=== PATIENT | male | born 1950 | race Caucasian/White ===

== ENCOUNTER 2017-10-03 13:27 | Emergency (ER) | payer MEDICARE ==
[~2017-10-03] VITALS: Ht 175.3 cm; Wt 68.0 kg
[~2017-10-03 13:27] MED LIST: METOPROLOL TART25 MG PO
[2017-10-03] MEDS ORDERED: CLEOCIN HCL300 MG PO (15:22)
== END 2017-10-03 15:31 | disposition home or self-care (01) ==
LOC: ED 13:27
DX: L03.115 Cellulitis of right lower limb (principal); Z91.048 Other nonmedicinal substance allergy status; Z98.890 Other specified postprocedural states; M79.662 Pain in left lower leg
CPT/HCPCS: 80053; 83605; 85025; 87040; 90471; 90715; 93971; 96365; 99284

== ENCOUNTER 2019-10-23 13:26 | Day surgery (SDC) | payer MEDICARE ==
[~2019-10-23] VITALS: Ht 175.3 cm; Wt 72.6 kg
[~2019-10-23 13:26] MED LIST changes: +CALCIUM500 MG PO; +CLEOCIN HCL300 MG PO; +GARLIC1 EAC1 PO; +MULTIVITAMINS1 EAC7 PO; +SAW PALMETTO450 MG PO; +VITAMIN B122500 MCG PO
--- NOTE | 2019-10-23 16:10 | NUR ---
10/23/19 1610 Lurdes Barrett 1604-PATIENT ARRIVED TO PACU ON 2L NC REACTIVE TO VERBAL STIMULI OPENING EYES DENIES PAIN OR NAUSEA. LAYING LEFT LATERAL. ENCOURAGED TO PASS GAS. IVF INFUSING.
--- NOTE | 2019-10-23 20:17 | OR ---
[facility] [address], [place] [address] Signed DATE OF OPERATION: 10/23/2019 SURGEON: Marylin Winn MD PREOPERATIVE DIAGNOSIS: Positive Cologuard test, July 08, 2019. POSTOPERATIVE DIAGNOSIS: Normal colon except for incomplete visualization of cecum. PROCEDURE: Total colonoscopy to cecum (incomplete) as regards visualization of cecum. ANESTHESIA: Fentanyl 150 mcg, Versed 7 mg. INDICATION: This thin 68-year-old white man is a patient of Dr. Youngblood of [place], [place]. He has never undergone colon evaluation in the past. He recently underwent Cologuard test under the direction of Dr. Youngblood, which was found to be positive. The patient has no symptoms of bleeding, diarrhea, or constipation and has no family history of colon cancer. He is admitted at this time to undergo colonoscopy to better characterize the possibility of adenoma or malignancy of the colon based on his Cologuard test. He understands the risk of bleeding, infection, and perforation and wished to proceed. FINDINGS: The prep was excellent. There was no sign of polyp identified on colonoscopy. However, the cecum despite many and multiple efforts could not fully be visualized and on that basis, an air-contrast barium enema with attention to the cecum is anticipated tomorrow at 9:00 a.m. PROCEDURE NOTE: The patient was brought to the endoscopy suite and placed in lateral decubitus position, given intravenous sedation to the point of slurred speech and nystagmus. Full cardiopulmonary monitoring was maintained. Digital rectal examination was performed and was normal. An Olympus video scope was advanced into the rectum and manipulated throughout the colon. There was some distortion of the colon, but the scope was advanced reasonably well beyond the splenic flexure and transverse colon to the hepatic flexure with this area in distortion became Electronically Signed By: MARYLIN WINN MD 10/23/192016 PATIENT NAME: ANTELMO EPPS OPERATIVE REPORT DATE OF : 50 REPORT #: [id number] PHYSICIAN: MARYLIN WINN MD PCP: RAMO YOUNGBLOOD MD REPORT IS CONFIDENTIAL AND NOT TO BE RELEASED WITHOUT AUTHORIZATION [facility] [address], [place] [address] Signed more prominent. Various maneuvers were required including abdominal wall stabilization, additional sedation, and so forth to allow for passage of the scope. With various maneuvers, the scope was advanced ultimately to the right colon, but again despite all efforts, the cecum could not be assured to be visualized. The scope was withdrawn and careful examination showed no sign of abnormality. Scope was reintroduced and advanced once again throughout the entire colon, but again despite all efforts, the cecum could not fully be eliminated as a source of the positive Cologuard test. The scope was withdrawn and removed and again no signs of abnormality were noted. ASSESSMENT: Positive Cologuard test with negative colonoscopy, but without complete visualization of the cecum. I would recommend air-contrast barium enema be obtained with attention to the cecum and right colon. This has been arranged for 9 o'clock tomorrow. MD MIA Reeder/RACHEL /[id number] cc: Ramo Youngblood MD Copies: RAMO YOUNGBLOOD MD ~ Electronically Signed By: MARYLIN WINN MD 10/23/192016 PATIENT NAME: MICHANTELMO MARYLIN OPERATIVE REPORT DATE OF : 50 REPORT #: [id number] PHYSICIAN: MARYLIN WINN MD PCP: RAMO YOUNGBLOOD MD REPORT IS CONFIDENTIAL AND NOT TO BE RELEASED WITHOUT AUTHORIZATION
== END 2019-10-23 16:50 | disposition home or self-care (01) ==
LOC: OPS 13:26 → DS 13:49 → OPS 14:30 → DS 14:30 → OPS 16:50
PROVIDERS: Surgery
PROC: 0DJD8ZZ Inspection of Lower Intestinal Tract, Via Natural or Artificial Opening Endoscopic (ICD-10-PCS; principal; 2019-10-23 14:30)
DX: R19.5 Other fecal abnormalities (principal); H51.8 Other specified disorders of binocular movement; M40.209 Unspecified kyphosis, site unspecified; Z91.041 Radiographic dye allergy status
CPT/HCPCS: 99153; G0500; J2250; J3010; J7121